=== PATIENT | female | born 1950 | race Caucasian/White ===

== ENCOUNTER 2016-08-17 14:51 | Outpatient (CLI) | payer MEDICARE | END 2016-08-17 14:52 | disposition home or self-care (01) | DX: Z12.31 Encounter for screening mammogram for malignant neoplasm of breast (principal) ==

== ENCOUNTER 2017-01-11 15:17 | Outpatient (CLI) | payer MEDICARE ==
--- NOTE | 2017-01-11 16:29 | XRAY Report ---
TWO VIEW CHEST: 01/11/2017 CLINICAL INDICATION: Cough. COMPARISON: 01/24/2015. FINDINGS: Frontal and lateral views of the chest demonstrate a normal cardiac silhouette. The lungs remain clear. No effusion or pneumothorax is present. IMPRESSION: NORMAL CHEST, UNCHANGED. JOB #: [id number] EXT JOB #:[id number]
== END 2017-01-11 15:18 | disposition home or self-care (01) ==
LOC: DI 15:17
PROVIDERS: ATTEND Internal Medicine
DX: R05 Cough (principal)
CPT/HCPCS: 71020

== ENCOUNTER 2017-01-23 13:08 | Outpatient (CLI) | payer MEDICARE ==
[2017-01-23] MEDS: ALBUTEROL NEB 2.5 MG/3 ML INH ONE (13:30)
== END 2017-01-23 13:09 | disposition home or self-care (01) ==
LOC: RT 13:08
PROVIDERS: ATTEND Internal Medicine
DX: R06.2 Wheezing (principal)
CPT/HCPCS: 94060; J7613

== ENCOUNTER 2017-11-27 07:49 | Outpatient (CLI) | payer MEDICARE ==
[2017-11-27 08:13] LABS: CREATININE 0.6 mg/dL (0.4-1.0)
[2017-11-27] MEDS ORDERED: IOPAMIDOL-300 100 ML VIAL ONE (08:38)
[2017-11-27] MEDS ORDERED: IOPAMIDOL-300 100 ML VIAL IVP ONE (08:52)
--- NOTE | 2017-11-27 14:16 | CT Report ---
CT IVP: 11/27/2017 CLINICAL INDICATION: Pain, urgency of urination. COMPARISON: CT 08/22/2011. TECHNIQUE: Axial CT images of the abdomen and pelvis were obtained prior to and following 100 mL Isovue 300 intravenously, using split bolus technique. FINDINGS: Limited evaluation of the lung bases is unremarkable. ABDOMEN: On the unenhanced images, there are multiple left renal calculi, measuring up to 1.2 cm without evidence of hydronephrosis. No hydroureter is seen. Both kidneys demonstrate parapelvic and cortical cysts. No solid renal mass or collecting system lesion is seen. Allowing for the phase of contrast enhancement, the liver, spleen, pancreas and adrenal glands are unremarkable. The gallbladder demonstrates calculi. No bowel dilatation, free gas, or free fluid is present. No abdominal adenopathy is seen. PELVIS: Sigmoid diverticulosis is present, without CT evidence of diverticulitis. The distal ureters are not dilated. The visualized urinary bladder is unremarkable. The patient is status post hysterectomy. No pelvic adenopathy or free fluid is seen. Osseous structures demonstrate degenerative changes. IMPRESSION: MULTIPLE LEFT RENAL CALCULI, WITHOUT EVIDENCE OF HYDRONEPHROSIS. CHOLELITHIASIS. CT DOSE REDUCTION STATEMENT In accordance with CT protocol optimization, one or more of the following dose reduction techniques were utilized for this exam: automated exposure control, adjustment of mA and/or KV based on patient size, or use of iterative reconstructive technique. TD: 11/27/2017 14:14
== END 2017-11-27 07:50 | disposition home or self-care (01) ==
LOC: LAB 07:49
PROVIDERS: ATTEND Internal Medicine
DX: R39.15 Urgency of urination (principal); Z87.442 Personal history of urinary calculi; R10.9 Unspecified abdominal pain; Z79.899 Other long term (current) drug therapy
CPT/HCPCS: 36415; 74178; 82565; Q9967

== ENCOUNTER 2018-01-07 14:29 | Outpatient (CLI) | payer MEDICARE ==
--- NOTE | 2018-01-07 17:38 | XRAY Report ---
SUPINE ABDOMEN: 01/07/2018 CLINICAL INDICATION: Left nephrolithiasis. COMPARISON: CT 11/27/2017. FINDINGS: Supine views of the abdomen demonstrate a normal bowel gas pattern. Left nephrolithiasis is again seen, with the largest stone, in the upper pole of the left kidney, measuring 10 mm. No definite right nephrolithiasis is appreciated. IMPRESSION: LEFT NEPHROLITHIASIS. TD: 01/07/2018 15:52
== END 2018-01-07 14:30 | disposition home or self-care (01) ==
LOC: DI 14:29
PROVIDERS: ATTEND Urology
DX: N20.0 Calculus of kidney (principal)
CPT/HCPCS: 74018

== ENCOUNTER 2018-02-18 18:24 | Outpatient (CLI) | payer MEDICARE ==
--- NOTE | 2018-02-19 09:17 | Ultrasound Report ---
Procedure Date: 02/18/2018 Accession Number: [id number] / [id number] Procedure: US - Retroperitoneal CPT Code: FULL RESULT: EXAM: Retroperitoneal DATE: 02/18/2018 7:10 PM CLINICAL HISTORY: KIDNEY STONE COMPARISON: CT 11/27/2017 TECHNIQUE: Real-time scanning was performed with static images obtained. FINDINGS: Right Kidney: 13.0 x 6.6 x 5.6 cm. Mild hydronephrosis. No definite shadowing calculus. Left Kidney: 13.0 x 6.4 x 5.6 cm. Mild hydronephrosis. No definite shadowing calculus. Bladder: Bilateral jets seen. The prevoid bladder volume was 262 cc. The postvoid bladder volume was 13 cc. IMPRESSION: Mild bilateral hydronephrosis. No definite shadowing calculus is identified. RADIA
== END 2018-02-18 18:25 | disposition home or self-care (01) ==
LOC: DI 18:24
PROVIDERS: ATTEND Physician Assistant
DX: N20.0 Calculus of kidney (principal); N13.30 Unspecified hydronephrosis
CPT/HCPCS: 76770

== ENCOUNTER 2020-11-22 13:13 | Outpatient (CLI) | payer MEDICARE ==
--- NOTE | 2020-11-23 13:21 | Mammography Report ---
BILATERAL DIGITAL SCREENING MAMMOGRAM 3D/2D: 11/22/2020 CLINICAL: Routine screening. Comparison is made to exams dated: 08/17/2016 mammogram and 06/25/2014 mammogram - [facility]. There are scattered fibroglandular elements in both breasts. No significant masses, calcifications, or other findings are seen in either breast. There has been no significant interval change. IMPRESSION: NEGATIVE There is no mammographic evidence of malignancy. A 1 year screening mammogram is recommended. This exam was interpreted at Station ID: [id number]. NOTE: For mammograms, a report in lay terms will be sent to the patient. Approximately 15% of breast malignancies will not be visualized mammographically. In the management of a palpable breast mass, a negative mammogram must not discourage biopsy of a clinically suspicious lesion. Electronically Signed By: Joseph Wild M.D. ar/penrad:11/22/2020 13:59:31 ACR BI-RADS Category 1: Negative 3341F PARENCHYMAL PATTERN: (A) - The breast(s) demonstrate(s) scattered fibroglandular densities. BI-RADS CATEGORY: (1) - 1 RECOMMENDATION: (ANNUAL) - Recommend routine annual screening mammography. [id number] 1 year screening LATERALITY: (B)
== END 2020-11-22 13:14 | disposition home or self-care (01) ==
LOC: DI 13:13
PROVIDERS: ATTEND Internal Medicine
DX: Z12.31 Encounter for screening mammogram for malignant neoplasm of breast (principal)

== ENCOUNTER 2021-07-11 15:57 | Outpatient (CLI) | payer MEDICARE ==
--- NOTE | 2021-07-11 17:02 | Ultrasound Report ---
PROCEDURE: Duplex Ext Veins Right INDICATIONS: EDEMA RIGHT LOWER EXTREMITY TECHNIQUE: Real-time imaging, as well as color and pulse Doppler interrogation, were performed of the lower extr emity deep veins from the inguinal ligament to the popliteal fossa. COMPARISON: None. FINDINGS: The deep veins are normally compressible, and free of intraluminal thrombus. Color and pu lse Doppler demonstrate normal phasic intraluminal flow. There is normal augmentation response to di stal compression maneuver. IMPRESSION: No sonographic evidence of DVT. Complex fluid collection in the right medial calf is non specific but could represent pooled edema. The collection is considered unlikely to represent abscess . Reviewed by: Eleno Chan MD on 07/11/2021 4:00 PM [facility] Approved by: Eleno Chan MD on 07/11/2021 4:00 PM [facility] Station ID: [id number]
== END 2021-07-11 15:58 | disposition home or self-care (01) ==
LOC: DI 15:57
PROVIDERS: ATTEND Internal Medicine
DX: R22.41 Localized swelling, mass and lump, right lower limb (principal)

== ENCOUNTER 2023-10-28 06:14 | Day surgery (SDC) | payer MEDICARE ==
[2023-10-28] MEDS: LACTATED RINGERS 1,000 ML IV ONE ×2 (06:39→08:01)
[2023-10-28] MEDS ORDERED: PROPOFOL 500 MG/50 ML 500 MG/50 ML VIAL ONE (07:08)
[2023-10-28] MEDS ORDERED: LIDOCAINE-PF 2% 10 ML AMP SUBQ ONE (07:11)
--- NOTE | 2023-10-28 07:16 | ANESTHESIA ---
Pre-Anesthesia VS, & Labs - Diagnosis history of polyps - Procedure colonoscopy Vital Signs: Temp Pulse Resp BP Pulse Ox O2 Flow Rate 36.0 C L 75 18 150/84 H 97 10/28/23 06:31 10/28/23 06:31 10/28/23 06:31 10/28/23 06:31 10/28/23 06:31 Height: 5 ft 8 in Weight (kg): 91 kg Body Mass Index: 30.4 BMI Classification: Obese - NPO Other (prep as directed, fisnished at 530am) - Is Patient ?: No Home Medications and Allergies Multivitamin [Multivitamins] 1 tab ORAL DAILY 10/22/14 Allergies/Adverse Reactions: Allergies Allergy/AdvReac Type Severity Reaction Status Date / Time codeine AdvReac Nausea Verified 10/25/23 13:35 Anes History & Medical History - Anesthetic History Anesthesia Complications: reports: No previous complications - Medical History Cardiovascular: reports: None Pulmonary: reports: None Gastrointestinal: reports: None Urinary: reports: Kidney stones Musculoskeletal: reports: Osteoarthritis Endocrine/Autoimmune: reports: None Skin: reports: None - Surgical History Urologic: reports: Kidney stents, Ureterolithotomy (stones) Gynecologic: reports: Hysterectomy Exam General: Alert, Oriented x3 Dental: WNL Mouth Opening: Greater than 4 Fingerbreadths Neck Mobility: Normal Mallampati classification: II Thyromental Distance: greater than 6 cm Respiratory: Lungs clear Cardiovascular: Regular rate Plan Anesthesia Type: Total IV Consent for Procedure(s) Verified and Reviewed: Yes Code Status: Attempt Resuscitation ASA classification: 2-Mild systemic disease Is this case an emergency?: No
[2023-10-28] MEDS: LACTATED RINGERS 600 ML IV ONE (08:01)
--- NOTE | 2023-10-28 08:09 | ANESTHESIA POST OP EVALUATION ---
Anesthesia Post Eval - Post Anesthesia Eval Vitals: Last Vital Signs Temp 36.0 C L 10/28/23 06:31 Pulse 75 10/28/23 06:31 Resp 18 10/28/23 06:31 BP 150/84 H 10/28/23 06:31 Pulse Ox 97 10/28/23 06:31 O2 Flow Rate CV Function Including HR & BP: Stable Pain Control: Satisfactory Nausea & Vomiting: Negative Mental Status: Baseline Respiratory Status: Airway Patent Hydration Status: Satisfactory Anesthesia Complications: None
[2023-10-28 09:15] VITALS: BP 135/60; O2SAT 97
== END 2023-10-28 06:15 | disposition home or self-care (01) ==
LOC: SDS 06:14
PROVIDERS: ATTEND Surgery
PROC: 0DBP8ZX Excision of Rectum, Via Natural or Artificial Opening Endoscopic, Diagnostic (ICD-10-PCS; 2023-10-28)
PROC: 0DBM8ZX Excision of Descending Colon, Via Natural or Artificial Opening Endoscopic, Diagnostic (ICD-10-PCS; 2023-10-28)
PROC: 0DBK8ZX Excision of Ascending Colon, Via Natural or Artificial Opening Endoscopic, Diagnostic (ICD-10-PCS; principal; 2023-10-28 07:30)
DX: Z12.11 Encounter for screening for malignant neoplasm of colon (principal); D12.2 Benign neoplasm of ascending colon; D12.4 Benign neoplasm of descending colon; K63.5 Polyp of colon; K57.30 Diverticulosis of large intestine without perforation or abscess without bleeding; E66.9 Obesity, unspecified; Z68.30 Body mass index [BMI] 30.0-30.9, adult; Z87.891 Personal history of nicotine dependence
CPT/HCPCS: 45380; J7120

== ENCOUNTER 2024-04-10 08:35 | Emergency (ER) | payer MEDICARE ==
[2024-04-10 08:50] VITALS: BP 156/94; O2SAT 98
--- NOTE | 2024-04-10 08:53 | ED Physician Documentation ---
History of Present Illness - Stated complaint Stated Complaint: DOG BITE,RT FINGER INJ - Chief complaint Chief Complaint: Trauma Ext - History obtained from History obtained from: Patient - History of Present Illness Timing: How many days ago (2) Pain level max: 5 Pain level now: 4 - Additonal information Additional information: 74-year-old right-handed female presents with a dog bite to the right fourth digit. This occurred 2 days ago. The dog was an elderly dog and was put down for a "stroke". No history of rabies. Patient noted worsening redness and swelling to the distal phalanx. No palmar tenderness. No drainage. 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 - Present Medications Home Medications: Ambulatory Orders Medication Instructions Recorded Confirmed Multivitamin [Multivitamins] 1 tab ORAL DAILY 10/22/14 10/28/23 Amox/Clav 875/125 [Augmentin] 1 tab PO Q12H #14 tablet 04/10/24 - Allergies Allergies/Adverse Reactions: Allergies Allergy/AdvReac Type Severity Reaction Status Date / Time codeine AdvReac Nausea Verified 04/10/24 08:47 - Social History Does the pt smoke?: No Smoking Status: Never smoker PD ED PE NORMAL - Vitals Vital signs reviewed: Yes - General General: Alert and oriented X 3, No acute distress - HEENT HEENT: Moist mucous membranes - Derm Derm: Warm and dry - Extremities Extremities: Other (R hand - 4th digit - Mild swelling and erythema to the distal phalanx just distal to the dip joint. no palmar tenderness, no tendon tenderness. NVI. no pulp TTP or swelling.) - Neuro Neuro: Alert and oriented X 3 - Psych Psych: Normal mood, Normal affect Results - Vitals Vitals: Vital Signs - 24 hr 04/10/24 08:41 Temperature 35.9 C L Heart Rate 80 Respiratory 18 Rate Blood Pressure 156/94 H O2 Saturation 98 Oxygen O2 Source Room air PD Medical Decision Making - ED course Complexity details: considered differential, d/w patient ED course: 74-year-old female with a dog bite to the right fourth digit. No evidence of deep space infection in the hand. No evidence of infection in the joint. No evidence of tendon infection. Will place on Augmentin. Given Tdap. Patient counseled regarding signs and symptoms for which I believe and urgent re- evaluation would be necessary. Patient with good understanding of and agreement to plan and is comfortable going home at this time This document was made in part using voice recognition software. While efforts are made to proofread this document, sound alike and grammatical errors may occur. Departure - Departure Disposition: 01 Home, Self Care Clinical Impression: Dog bite Qualifiers: Encounter type: initial encounter Qualified Code(s): W54.0XXA - Bitten by dog, initial encounter Cellulitis Qualifiers: Site of cellulitis: extremity Site of cellulitis of extremity: finger Laterality: right Qualified Code(s): L03.011 - Cellulitis of right finger Condition: Good Instructions: ED Infec Skin Cellulitis, ED Bite Dog Follow-Up: Jen Bustillo MD [Primary Care Provider] - Prescriptions: Amox/Clav 875/125 [Augmentin] 1 tab PO Q12H #14 tablet Comments: Take all antibiotics until gone. Please follow-up with your doctor in 4 to 5 days for a wound check. Return here if you worsen including pain and swelling traveling up the hand or into the palm of the hand. You were given a tetanus shot today as well. Your prescriptions were sent to the [facility] pharmacy. Forms: PCP List
[2024-04-10] MEDS: AMOX/CLAV 875 MG/125 MG TABLET PO STA (08:57)
[2024-04-10] MEDS: TETANUS/DIPHTHERIA/PERTUSSIS 0.5 ML SYRINGE IM ONE (08:57)
== END 2024-04-10 09:08 | disposition home or self-care (01) ==
LOC: ED 08:35
DX: L03.011 Cellulitis of right finger (principal); W54.0XXA Bitten by dog, initial encounter
CPT/HCPCS: 90471; 90715; 99283; A9270

== ENCOUNTER 2024-04-13 11:14 | Emergency (ER) | payer MEDICARE ==
[2024-04-13 11:32] VITALS: BP 149/84; O2SAT 96
[2024-04-13 14:02] LABS: BASOPHILS % (AUTO) 0.6 %; EOSINOPHILS # (AUTO) 0.1 10^3/uL (0.0-0.7); EOSINOPHILS % (AUTO) 1.8 %; HGB - HEMOGLOBIN 14.3 g/dL (12.0-16.0); LYMPHOCYTES # (AUTO) 1.6 10^3/uL (1.5-3.5); LYMPHOCYTES % (AUTO) 25.8 %; MEAN CORPUSCULAR HEMOGLOBIN 31.2 pg (27.0-31.0); MEAN CORPUSCULAR HGB CONC 32.5 g/dL (32.0-36.0); MEAN CORPUSCULAR VOLUME 95.9 fL (81.0-99.0); MEAN PLATELET VOLUME 9.8 fL (7.9-10.8); MONOCYTES # (AUTO) 0.4 10^3/uL (0.0-1.0); MONOCYTES % (AUTO) 5.6 %; NEUTROPHILS # (AUTO) 4.1 10^3/uL (1.5-6.6); NEUTROPHILS % (AUTO) 65.7 %; PLT - PLATELET COUNT 237 10^3/uL (130-450); RED BLOOD COUNT 4.59 10^6/uL (4.20-5.40); RED CELL DISTRIBUTION WIDTH 13.2 % (12.0-15.0); WHITE BLOOD COUNT 6.2 x10^3/uL (4.8-10.8)
[2024-04-13 14:15] LABS: ALBUMIN/GLOBULIN RATIO 1.4 (1.0-2.2); BILIRUBIN,TOTAL 0.4 mg/dL (0.2-1.0); CALCIUM 9.1 mg/dL (8.5-10.3); CREATININE 0.7 mg/dL (0.6-1.3); POTASSIUM 4.1 mmol/L (3.5-4.5); TOTAL PROTEIN 6.9 g/dL (6.4-8.9)
--- NOTE | 2024-04-13 14:43 | XRAY Report ---
PROCEDURE: Finger(s) RT INDICATIONS: fourth finger concern for infection TECHNIQUE: AP hand, 2 views of the fourth finger(s) acquired. COMPARISON: None. FINDINGS: Bones: No fractures or dislocations. No osseous erosion, ostial lysis or periosteal reaction. No davalos spicious bony lesions. Soft tissues: No suspicious soft tissue calcifications or masses. No radiopaque foreign body. IMPRESSION: 1.No acute bony abnormality. 2.No radiographic evidence of acute osteomyelitis; however, radiograph is insensitive in the first 14 days. If there is high clinical suspicion, recommend MRI for further evaluation. Reviewed by: Leroy Fischer MD on 04/13/2024 1:42 PM [facility] Approved by: Leroy Fischer MD on 04/13/2024 1:42 PM [facility] Station ID: [id number]
--- NOTE | 2024-04-13 15:13 | ED Physician Documentation ---
History of Present Illness - Stated complaint Stated Complaint: RT FINGER DOG BITE - Chief complaint Chief Complaint: Wound - Additonal information Additional information: Patient is a 74-year-old female presenting to the emergency department with right fourth digit pain. Patient was bit by a dog on 04/08. She was seen here on 04/10 started on antibiotics and discharged home. Patient notes she was feeling fine until about 1 day ago when she noticed worsening redness and discharge from the wounds. She notes she has been compliant with the antibiotics. She denies any fevers or chills associated with symptoms. She notes worsening pain with slight movement of her right fourth digit. Patient is right-handed. Tetanus was last updated on 04/10/2024. Patient notes no concerns for rabies as the dog was put down and was vaccinated. 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 - Present Medications Home Medications: Ambulatory Orders Medication Instructions Recorded Confirmed Multivitamin [Multivitamins] 1 tab ORAL DAILY 10/22/14 04/13/24 Amox/Clav 875/125 [Augmentin] 1 tab PO Q12H #14 tablet 04/10/24 04/13/24 Bacitracin Zinc Oint 1 applic TOP BID #1 each 04/13/24 Sulfamethox/Trimeth 800/160 1 each PO BID #14 tablet 04/13/24 [Bactrim Ds 800/160] - Allergies Allergies/Adverse Reactions: Allergies Allergy/AdvReac Type Severity Reaction Status Date / Time vancomycin Allergy Rash Verified 04/13/24 18:28 codeine AdvReac Nausea Verified 04/13/24 11:23 - Social History Does the pt smoke?: No Smoking Status: Never smoker PD ED PE NORMAL - Vitals Vital signs reviewed: Yes - General General: Alert and oriented X 3 - HEENT HEENT: Atraumatic - Neck Neck: Supple, no meningeal sign - Cardiac Cardiac: RRR, No murmur, No gallop, No rub - Respiratory Respiratory: No respiratory distress, Clear bilaterally Results - Vitals Vitals: Vital Signs - 24 hr 04/13/24 11:23 Temperature 36.7 C Heart Rate 85 Respiratory 16 Rate Blood Pressure 149/84 H O2 Saturation 96 Oxygen O2 Source Room air - Labs Labs: Laboratory Tests 04/13/24 04/13/24 13:57 13:57 WBC 6.2 RBC 4.59 Hgb 14.3 Hct 44.0 MCV 95.9 MCH 31.2 H MCHC 32.5 RDW 13.2 Plt Count 237 MPV 9.8 Neut # (Auto) 4.1 Lymph # (Auto) 1.6 [place] # (Auto) 0.4 Eos # (Auto) 0.1 Baso # (Auto) 0.0 Absolute Nucleated RBC 0.00 Nucleated RBC % 0.0 Sodium 139 Potassium 4.1 Chloride 105 Carbon Dioxide 27 Anion Gap 7.0 BUN 12 Creatinine 0.7 Estimated GFR (MDRD) 81 L Glucose 100 Calcium 9.1 Total Bilirubin 0.4 AST 16 ALT 17 Alkaline Phosphatase 77 Total Protein 6.9 Albumin 4.0 Globulin 2.9 Albumin/Globulin Ratio 1.4 Departure - Departure Disposition: 01 Home, Self Care Clinical Impression: Cellulitis of ring finger Condition: Good Instructions: Bites Scratches Animal, ED Bite Animal General, ED Staph Infec Abx Tx Only Follow-Up: Marcello Guzman MD [Physician No Access] - Comments: You were seen here in the emergency department for animal bite to right ring finger. I have started you on more antibiotics to help with this infection apply topical antibiotics as prescribed. Watch for any worsening redness sw elling streaking or discharge from the wound. I have given you the follow-up number for hand surgery if you are unable to get in please follow-up with your PCP. [facility] [phone] F/u at next available appointment Forms: PCP List
[2024-04-13] MEDS: PIPERACILLIN/TAZOBACTAM 3.375 GM in SODIUM CHLORIDE 0.9% MINIBAG 100 ML IV STA (16:54)
[2024-04-13] MEDS: VANCOMYCIN INJ 2 GM in SODIUM CHLORIDE 0.9% 500 ML IV STA (17:24)
[2024-04-13] MEDS: diphenhydrAMINE INJ 50 MG/ML VIAL IVP STA (18:31)
[2024-04-13] MEDS: lidocaine 1% 20 ML MDV SUBQ ONE (18:51)
[2024-04-13] MEDS: BACITRACIN ZINC OINT 1 PACKET TOP STA (19:46)
[2024-04-14] MEDS ORDERED: VANCOMYCIN INJ 1 GM in SODIUM CHLORIDE 0.9% 250 ML IV SCH (05:00)
== END 2024-04-13 19:51 | disposition home or self-care (01) ==
LOC: ED 11:14
DX: S61.254D Open bite of right ring finger without damage to nail, subsequent encounter (principal); L03.011 Cellulitis of right finger; W54.0XXD Bitten by dog, subsequent encounter; Z79.899 Other long term (current) drug therapy
CPT/HCPCS: 36415; 73140; 80053; 85025; 96365; 96367; 96375; 99283; 99284; A9270; J1200; J3370